=== PATIENT | male | born 1985 | race Caucasian/White ===

== ENCOUNTER 2018-02-14 09:20 | Emergency (ER) | payer BC, SELFPAY ==
--- NOTE | 2018-02-14 10:44 | EDPHYS ---
Physician Documentation [facility] Name: Tre Krueger Age: 32 yrs Sex: Male : 1985 Arrival Date: 02/14/2018 Time: 09:25 Bed 10 Private MD: ED Physician Mark Umaña HPI: 02/14 09:47 This 32 yrs old Male presents to ER via Wheelchair with complaints of Ankle jr8 Injury. 09:47 The patient presents with pain, swelling, tenderness. The complaints affect the left jr8 ankle. Onset: The symptoms/episode began/occurred acutely, last night. Context: The problem was sustained bar, resulted from a mis-step by the patient. Associated signs and symptoms: The patient has no apparent associated signs or symptoms. Modifying factors: The symptoms are alleviated by nothing, the symptoms are aggravated by weight bearing, movement. Severity of symptoms: At their worst the symptoms were mild, in the emergency department the symptoms are unchanged. The patient has not experienced similar symptoms in the past. The patient has not recently seen a physician. inverted ankle while dancing last night. Historical: - Allergies: 09:37 No Known Allergies; aa5 - PMHx: 09:37 None; aa5 - PSHx: 09:37 None; aa5 - Immunization history:: Adult Immunizations up to date. - Social history:: Smoking status: Patient/guardian denies using tobacco. - Ebola Screening: : No symptoms or risks identified at this time. ROS: 09:47 Constitutional: Negative for fever, chills, and weight loss. jr8 09:47 MS/extremity: Positive for decreased range of motion, pain, swelling, tenderness, of the left ankle. 09:47 All other systems are negative. Exam: 09:47 Neck: Trachea midline, no thyromegaly or masses palpated, and no cervical jr8 lymphadenopathy. Supple, full range of motion without nuchal rigidity, or vertebral point tenderness. No Meningismus. Cardiovascular: Regular rate and rhythm with a normal S1 and S2. No gallops, murmurs, or rubs. Normal PMI, no JVD. No pulse deficits. Respiratory: Lungs have equal breath sounds bilaterally, clear to auscultation and percussion. No rales, rhonchi or wheezes noted. No increased work of breathing, no retractions or nasal flaring. Back: No spinal tenderness. No costovertebral tenderness. Full range of motion. Skin: Warm, dry with normal turgor. Normal color with no rashes, no lesions, and no evidence of cellulitis. Neuro: Awake and alert, GCS 15, oriented to person, place, time, and situation. Cranial nerves II-XII grossly intact. Motor strength 5/5 in all extremities. Sensory grossly intact. Cerebellar exam normal. Normal gait. 09:47 Musculoskeletal/extremity: Extremities: grossly normal except: noted in the left ankle: Swelling to lateral malleolus. Tenderness with ROM and upon direct palpation to lateral ankle. No obvious deformity. Full ROM but with pain both passive and active , Circulation is intact in all extremities. Pulses: noted to be 2+ in the right radial artery, right dorsalis pedis artery, left radial artery and left dorsalis pedis artery, Sensation intact. Vital Signs: 09:37 BP 130 / 93; Pulse 94; Resp 18 S; Temp 97.7(TE); Pulse Ox 98% on R/A; Weight 102.06 kg aa5 (R); Height 6 ft. 0 in. (182.88 cm) (R); Pain 3/10; 09:37 Body Mass Index 30.52 (102.06 kg, 182.88 cm) aa5 Procedures: 10:41 Splinting: Splint applied to left ankle using Ortho 3D boot, applied by nurse. Examined jr8 by me, post splint application: neurovascular intact, 2+ distal pulses palpable, brisk capillary refill noted, Patient tolerated well. Crutch training provided to patient and/or family. Return demonstration given. MDM: 09:44 Patient medically screened. jr8 10:42 Data reviewed: vital signs, nurses notes, radiologic studies, plain films. Data jr8 interpreted: Pulse oximetry: on room air is 98 %. Interpretation: normal. Counseling: I had a detailed discussion with the patient and/or guardian regarding: the historical points, exam findings, and any diagnostic results supporting the discharge/admit diagnosis, radiology results, the need for outpatient follow up, a orthopedic surgeon, to return to the emergency department if symptoms worsen or persist or if there are any questions or concerns that arise at home. 10:43 ED course: Patient requested boot for job. jr8 02/14 09:47 Order name: XRAY Ankle LEFT 3 view jr8 02/14 10:42 Order name: Splint; Complete Time: 11:53 jr8 02/14 11:24 Order name: Ortho shoe; Complete Time: 11:39 5 02/14 11:24 Order name: Crutch Training; Complete Time: 11:39 5 02/14 11:24 Order name: Crutches; Complete Time: 11:39 5 Administered Medications: No medications were administered Disposition: 17:52 Co-signature as Attending Physician, Mark Umaña MD. Disposition: 02/14/18 10:43 Discharged to Home. Impression: Sprain of ankle. - Condition is Stable. - Discharge Instructions: Ankle Sprain. - Prescriptions for Ibuprofen 800 mg Oral Tablet - take 1 tablet by ORAL route every 12 hours As needed take with food; 20 tablet. - Medication Reconciliation Form, Thank You Letter, Antibiotic Education, Prescription Opioid Use form. - Follow up: Eduardo Graham MD; When: 7 - 10 days; Reason: Recheck today's complaints, Continuance of care, Re-evaluation by your physician. - Problem is new. - Symptoms have improved. Signatures: Dispatcher [employer] EDMS Nadia Matson RN RN aa5 Rodolfo Carvalho PA PA 8 Kenyetta Suarez [facility] Mark Umaña MD MD Corrections: (The following items were deleted from the chart) 11:46 10:43 02/14/2018 10:43 Discharged to Home. Impression: Sprain of ankle. Condition is mh5 Stable. Forms are Medication Reconciliation Form, Thank You Letter, Antibiotic Education, Prescription Opioid Use. Follow up: Eduardo Graham; When: 7 - 10 days; Reason: Recheck today's complaints, Continuance of care, Re-evaluation by your physician. Problem is new. Symptoms have improved. jr8
--- NOTE | 2018-02-14 10:44 | ER ---
Nurse's Notes [facility] Name: Tre Krueger Age: 32 yrs Sex: Male : 1985 Arrival Date: 02/14/2018 Time: 09:25 Bed 10 Private MD: Diagnosis: Sprain of ankle Presentation: 02/14 09:36 Presenting complaint: Patient states: "I was dancing last night and I rolled my ankle". aa5 Pt c/o pain to left ankle. Transition of care: patient was not received from another setting of care. Onset of symptoms was January 2018. Risk Assessment: Do you want to hurt yourself or someone else? Patient reports no desire to harm self or others. Initial Sepsis Screen: Does the patient meet any 2 criteria? No. Patient's initial sepsis screen is negative. Does the patient have a suspected source of infection? No. Patient's initial sepsis screen is negative. Care prior to arrival: None. 09:36 Method Of Arrival: Wheelchair aa5 09:36 Acuity: TRACIE 4 aa5 Historical: - Allergies: 09:37 No Known Allergies; aa5 - PMHx: 09:37 None; aa5 - PSHx: 09:37 None; aa5 - Immunization history:: Adult Immunizations up to date. - Social history:: Smoking status: Patient/guardian denies using tobacco. - Ebola Screening: : No symptoms or risks identified at this time. Screenin:38 Abuse screen: Denies threats or abuse. Nutritional screening: No deficits noted. aa5 Tuberculosis screening: No symptoms or risk factors identified. Fall Risk None identified. Assessment: 09:40 General: Appears comfortable, Behavior is calm, cooperative. Pain: Complains of pain in aa5 left ankle Pain does not radiate. Pain currently is 3 out of 10 on a pain scale. at worst was 10 out of 10 on a pain scale. Quality of pain is described as sharp, tender, Pain began this morning Is continuous, Aggravated by weight bearing. Neuro: Level of Consciousness is awake, alert, obeys commands, Oriented to person, place, time, situation. Cardiovascular: No deficits noted. Respiratory: Airway is patent Respiratory effort is even, unlabored, Respiratory pattern is regular, symmetrical. GI: No signs and/or symptoms were reported involving the gastrointestinal system. : No signs and/or symptoms were reported regarding the genitourinary system. EENT: No signs and/or symptoms were reported regarding the EENT system. Derm: Skin is pink, warm \\T\\ dry. Musculoskeletal: Range of motion: intact in all extremities, Swelling present in left ankle. 11:35 Reassessment: Air splint walking boot placed to left ankle . aa5 11:35 Reassessment: Patient is alert, oriented x 3, equal unlabored respirations, skin aa5 warm/dry/pink. Vital Signs: 09:37 BP 130 / 93; Pulse 94; Resp 18 S; Temp 97.7(TE); Pulse Ox 98% on R/A; Weight 102.06 kg aa5 (R); Height 6 ft. 0 in. (182.88 cm) (R); Pain 3/10; 09:37 Body Mass Index 30.52 (102.06 kg, 182.88 cm) aa5 ED Course: 09:25 Patient arrived in ED. mr 09:37 Triage completed. aa5 09:37 Arm band placed on. aa5 09:37 Patient has correct armband on for positive identification. Bed in low position. Call aa5 light in reach. Side rails up X 1. 09:38 Nadia Matson, KARL is Primary Nurse. aa5 09:43 Rodolfo Carvalho PA is PHCP. jr8 09:43 Mark Umaña MD is Attending Physician. jr8 10:09 X-ray completed. Portable x-ray completed in exam room. jr1 10:13 XRAY Ankle LEFT 3 view In Process Unspecified. EDMS 10:42 Eduardo Graham MD is Referral Physician. jr8 11:24 Crutch training done. Ortho shoe applied to left foot. ortho boot. mh5 11:45 Patient did not have IV access during this emergency room visit. aa5 11:45 No provider procedures requiring assistance completed. aa5 Administered Medications: No medications were administered Outcome: 10:43 Discharge ordered by . jr8 11:45 Discharged to home via wheelchair, with crutches, with significant other. aa5 11:45 Condition: stable 11:45 Discharge instructions given to patient, Instructed on discharge instructions, follow up and referral plans. medication usage, Demonstrated understanding of instructions, follow-up care, medications, Prescriptions given X 1. 11:46 Patient left the ED. 5 Signatures: Dispatcher [employer] MANUEL KashmirRebeca mr Virgie Hickey jr1 Nadia Matson RN RN aa5 Rodolfo Carvalho PA PA jr8 Kenyetta Suarez [facility]
--- NOTE | 2018-02-14 12:39 | RAD REPORT ---
EXAM DESCRIPTION: RAD - Ankle Left 3 View - 02/14/2018 10:13 am CLINICAL HISTORY: Ankle pain, twisting injury COMPARISON: None. FINDINGS: No fracture, dislocation or periosteal reaction. No joint effusion seen. No joint space na rrowing. No soft tissue abnormality. Lateral soft tissue swelling is present. IMPRESSION: Soft tissue swelling with no left ankle fracture.
== END 2018-02-14 11:46 | disposition home or self-care (01) ==
LOC: ER 09:20
DX: S93.402A Sprain of unspecified ligament of left ankle, initial encounter (principal); Y93.41 Activity, dancing; Y92.9 Unspecified place or not applicable
CPT/HCPCS: 99283

== ENCOUNTER 2022-09-19 19:24 | Day surgery (SDC) | payer BC, SELFPAY ==
--- OUTSIDE RECORDS SUMMARY | 2022-09-19 19:27 | XMS REPORT | Continuity of Care Document ---
:1985 Author Organization [facility] t Address [address] [facility] [address] [place] [address] Care Team Providers Name Role Phone Unavailable Unavailable Unavailable Problems This patient has no known problems. Allergies, Adverse Reactions, Alerts This patient has no known allergies or adverse reactions. Medications This patient has no known medications. Procedures This patient has no known procedures. Encounters Start End Encounter Admission Attending Care Care Encounter Source Date/Time Date/Time Type Type Clinicians Facility Department ID 2022-01-16 Outpatient [facility] [id number] Common 08:18:01 [facility] 2021-08-20 Outpatient [facility] [id number] Common 09:17:02 [facility] Results This patient has no known results.
[2022-09-19] MEDS ORDERED: HYDROMORPHONE HCL 1 MG/ML INJ ONE ×2 (20:45→22:34)
[2022-09-19] MEDS ORDERED: NA CHLORIDE 0.9% 1,000 ML ONE (20:45)
[2022-09-19] MEDS ORDERED: ONDANSETRON 4 MG/2 ML VIAL ONE ×2 (20:45→22:57)
[2022-09-19 20:46] LABS: Absolute Lymphocytes (CBC) 1.6 K/uL (0.7-4.9); Hematocrit 45.2 % (39.6-49.0); Lymphocytes % 11.5 % (15.3-44.8); MCV 86.9 fL (80-100); MPV 7.7 fL (7.6-11.3); RBC Red Blood Cell Count 5.21 M/uL (4.33-5.43)
[2022-09-19 21:06] LABS: Albumin 3.8 g/dL (3.4-5.0); Bilirubin Total 0.5 mg/dL (0.2-1.0); Protein, Total 7.8 g/dL (6.4-8.2)
--- NOTE | 2022-09-19 21:54 | RAD REPORT ---
EXAM DESCRIPTION: CT - Stone Protocol - 09/19/2022 9:39 pm CLINICAL HISTORY: FLANK PAIN COMPARISON: CTSTONE PROTOCOL dated 07/30/2013; CTSTONE PROTOCOL dated 01/13/2013; CT-STONE PROTOCOL da lori 12/05/2010 TECHNIQUE: Thin cut axial CT imaging of the abdomen and pelvis was performed without IV contrast. Mu ltiplanar reformats were generated and reviewed. All CT scans are performed using dose optimization technique as appropriate and may include automated exposure control or mA/KV adjustment according to patient size. FINDINGS: No suspicious findings in the lung bases. The liver, spleen, and pancreas show no suspicious findings. Gallbladder and biliary tree are also wi thout suspicious finding. Symmetric renal contour, without suspicious parenchymal findings within limits of noncontrast techniq ue. Right pelviureteric junction 1.5 centimeter calculus. Mild right hydronephrosis. No dilated bowel loops or bowel wall thickening. No free air, free fluid or inflammatory stranding. N o hernia, mass or bulky lymphadenopathy. The urinary bladder is without significant finding. No suspicious bony findings. IMPRESSION: Mild right hydronephrosis, related to a right pelviureteric junction 1.5 centimeter calc ulus. The findings were communicated to Milad Page on 09/19/2022 at 21:50 hours.
--- NOTE | 2022-09-19 22:27 | EDPHYS ---
Physician Documentation [facility] Name: Tre Krueger Age: 37 yrs Sex: Male : 1985 Arrival Date: 09/19/2022 Time: 19:24 Bed 4 Private MD: ED Physician Juan Alegria HPI: 09/19 20:15 This 37 yrs old Male presents to ER via Ambulatory with complaints of Possible Kidney cp Stone, Low Back Pain, Abdominal Pain. 20:15 The patient complains of pain in the right flank. The pain does not radiate. Onset: The cp symptoms/episode began/occurred intermittent for the past month, constant since this morning at about 0700. 20:15 Associated signs and symptoms: Pertinent positives: nausea, Pertinent negatives: cp diarrhea, dizziness, fever, headache, pain radiating to the lower extremities, vomiting. Severity of pain: in the emergency department the pain is unchanged despite home interventions. The patient has experienced similar episodes in the past, multiple times, today's symptoms are similar, to when the patient was apparently diagnosed with kidney stones. Historical: - Allergies: 20:05 No Known Allergies; iw - Home Meds: 20:05 None [Active]; iw - PMHx: 20:05 None; iw - PSHx: 20:05 None; iw - Immunization history:: Adult Immunizations up to date, Client reports receiving the 2nd dose of the Covid vaccine. - Social history:: Smoking status: Patient denies any tobacco usage or history of. Patient uses alcohol, only on a social basis. ROS: 20:20 Constitutional: Negative for body aches, chills, fever, poor PO intake. cp 20:20 Eyes: Negative for injury, pain, redness, and discharge. cp 20:20 ENT: Negative for drainage from ear(s), ear pain, sore throat, difficulty swallowing, difficulty handling secretions. 20:20 Cardiovascular: Negative for chest pain, edema, palpitations. 20:20 Respiratory: Negative for cough, shortness of breath, wheezing. 20:20 Abdomen/GI: Positive for nausea, Negative for abdominal pain, vomiting, diarrhea, constipation. 20:20 Back: Positive for flank pain, on the right. 20:20 : Negative for difficulty urinating, bladder incontinence, testicular pain 20:20 Skin: Negative for rash. 20:20 Neuro: Negative for altered mental status, dizziness, headache, numbness, weakness. 20:20 All other systems are negative. Exam: 20:25 Constitutional: The patient appears in no acute distress, alert, awake, non-toxic, well cp developed, well nourished, uncomfortable. 20:25 Head/Face: Normocephalic, atraumatic. cp 20:25 Eyes: Periorbital structures: appear normal, Conjunctiva: normal, no exudate, no injection, Sclera: no appreciated abnormality, Lids and lashes: appear normal, bilaterally. 20:25 ENT: External ear(s): are unremarkable, Nose: is normal, Mouth: Lips: moist, Oral mucosa: pink and intact, moist, Posterior pharynx: is normal, airway is patent, no erythema, no exudate. 20:25 Neck: ROM/movement: is normal, is supple, without pain, no range of motions limitations. 20:25 Chest/axilla: Inspection: normal. 20:25 Cardiovascular: Rate: normal, Rhythm: regular, Edema: is not appreciated, JVD: is not appreciated. 20:25 Respiratory: the patient does not display signs of respiratory distress, Respirations: normal, no use of accessory muscles, no retractions, labored breathing, is not present, Breath sounds: are clear throughout, no decreased breath sounds, no stridor, no wheezing. 20:25 Abdomen/GI: Inspection: abdomen appears normal, Bowel sounds: active, all quadrants, Palpation: abdomen is soft and non-tender, in all quadrants. 20:25 Back: pain, that is moderate, of the right mid back, ROM is painful, with all movement. 20:25 Skin: cellulitis, is not appreciated, no rash present. 20:25 Neuro: Orientation: to person, place \T\ time. Mentation: is normal, Motor: moves all fours, strength is normal, Sensation: is normal, Gait: is steady, at a normal pace, without difficulty. Vital Signs: 20:02 BP 147 / 106; Pulse 63; Resp 19 S; Temp 98.6(O); Pulse Ox 100% on R/A; Weight 106.59 kg iw (R); Height 6 ft. 0 in. (R); Pain 10/10; 21:10 BP 158 / 113; Pulse 59; Resp 16; Pulse Ox 96% on R/A; jb4 22:12 BP 148 / 99; Pulse 63; Resp 16; Pulse Ox 99% on R/A; jb4 20:02 Body Mass Index 31.87 (106.59 kg, 182.88 cm) iw 20:02 Pain Scale: Adult iw MDM: 20:07 Patient medically screened. cp 20:45 Differential diagnosis: nephrolithiasis, pyelonephritis, UTI, diverticulitis, ruptured cp AAA, dissecting AAA. 22:05 Data reviewed: vital signs, nurses notes, lab test result(s), radiologic studies, CT cp scan. Management of patient was discussed with the following: Paper Sealer: DR Winn \[id number] concerning 1.5 cm stone right ureter with acute kidney injury and mild hydronephrosis. 22:15 ED course: will admit to same day surgery for right ureter stent placement and patient cp to be discharged home after procedure with RX for blood draw to check kidney function next week. 09/19 20:14 Order name: CBC with Diff; Complete Time: 21:23 09/19 21:23 Interpretation: Normal except: WBC 13.80; RDW 12.0; DONNA% 79.4; LYM% 11.5; NEUT A 10.9. 09/19 20:14 Order name: CMP; Complete Time: 21:23 09/19 21:23 Interpretation: Normal except: NA 133; CRE 1.73; GFR 52; GLOB 4.0; A/G 1.0. 09/19 20:14 Order name: Lipase; Complete Time: 21:23 09/19 20:14 Order name: Urinalysis w/ reflexes 09/19 20:49 Order name: CT Stone Protocol; Complete Time: 21:57 09/19 21:57 Interpretation: Report reviewed. 09/19 20:14 Order name: IV Saline Lock; Complete Time: 20:47 09/19 20:14 Order name: Labs collected and sent; Complete Time: 20:47 cp Administered Medications: 20:47 Drug: NS 0.9% IV 1000 ml Route: IV; Rate: 1 bolus; Site: right antecubital; jb4 20:47 Drug: HYDROmorphone IVP 1 mg Route: IVP; Site: right antecubital; jb4 20:47 Drug: Ondansetron IVP 4 mg Route: IVP; Site: right antecubital; jb4 22:29 Drug: HYDROmorphone IVP 1 mg Route: IVP; Site: right antecubital; rv Disposition Summary: 09/19/22 22:26 Hospitalization Ordered Hospitalization Status: Observation cp Provider: Raghu Winn cp Location: Operating Room cp Condition: Stable cp Problem: new cp Symptoms: have improved cp Bed/Room Type: Standard cp Room Assignment: cp Diagnosis - Unspecified injury of right kidney, initial encounter cp - Hydronephrosis with renal and ureteral calculous obstruction cp Forms: - Medication Reconciliation Form cp - SBAR form cp Signatures: Dispatcher [employer] EDAniyah Andres RN RN Milad Davis PA PA cp Bryson, James, RN RN jb4 Don Nieves RN RN rv
--- NOTE | 2022-09-19 22:27 | ER ---
Nurse's Notes [facility] Name: Tre Krueger Age: 37 yrs Sex: Male : 1985 Arrival Date: 09/19/2022 Time: 19:24 Bed 4 Private MD: Diagnosis: Unspecified injury of right kidney, initial encounter;Hydronephrosis with renal and ureteral calculous obstruction Presentation: 09/19 20:02 Chief complaint: Patient states: i think i have another kidney stone. pain comes and iw goes for the last month but today it has been consistent pain on the right side since 0700 this morning. complains of nausea. Coronavirus screen: Client denies travel out of the [place] in the last 14 days. At this time, the client does not indicate any symptoms associated with coronavirus-19. Ebola Screen: No symptoms or risks identified at this time. Initial Sepsis Screen: Does the patient meet any 2 criteria? No. Patient's initial sepsis screen is negative. Does the patient have a suspected source of infection? No. Patient's initial sepsis screen is negative. Risk Assessment: Do you want to hurt yourself or someone else? Patient reports no desire to harm self or others. Onset of symptoms was September 19, 2022. 20:02 Method Of Arrival: Ambulatory iw 20:02 Acuity: TRACIE 3 iw Triage Assessment: 20:05 General: Appears in no apparent distress. uncomfortable, Behavior is calm, cooperative. iw Pain: Complains of pain in right flank. EENT: No deficits noted. No signs and/or symptoms were reported regarding the EENT system. Neuro: No deficits noted. [place] Agitation-Sedation Scale (RASS): 0 - Alert and Calm Level of Consciousness is awake, alert, obeys commands, Oriented to person, place, time, situation. Cardiovascular: No deficits noted. Denies chest pain, shortness of breath. Respiratory: No deficits noted. Airway is patent Respiratory effort is even, unlabored, Respiratory pattern is regular, symmetrical. GI: Abdomen is round non-distended. : No deficits noted. Reports inability to void, pain urgency, urinary frequency. Derm: No deficits noted. No signs and/or symptoms reported regarding the dermatologic system. Skin is intact, is healthy with good turgor, Skin is dry, Skin is normal, Skin temperature is warm. Musculoskeletal: No deficits noted. No signs and/or symptoms reported regarding the musculoskeletal system. Circulation, motion, and sensation intact. Range of motion: intact in all extremities. Historical: - Allergies: 20:05 No Known Allergies; iw - Home Meds: 20:05 None [Active]; iw - PMHx: 20:05 None; iw - PSHx: 20:05 None; iw - Immunization history:: Adult Immunizations up to date, Client reports receiving the 2nd dose of the Covid vaccine. - Social history:: Smoking status: Patient denies any tobacco usage or history of. Patient uses alcohol, only on a social basis. Screenin:12 [facility] ED Fall Risk Assessment (Adult) History of falling in the last 3 months, jb4 including since admission No falls in past 3 months (0 pts) Confusion or Disorientation No (0 pts) Score/Fall Risk Level 0 - 2 = Low Risk Oriented to surroundings, Maintained a safe environment. Abuse screen: Denies threats or abuse. Nutritional screening: No deficits noted. Tuberculosis screening: No symptoms or risk factors identified. Assessment: 21:10 Reassessment: Patient appears in no apparent distress at this time. Patient and/or jb4 family updated on plan of care and expected duration. Pain level reassessed. Patient is alert, oriented x 3, equal unlabored respirations, skin warm/dry/pink. 21:35 Reassessment: Pt to CT. jb4 22:10 Reassessment: Patient appears in no apparent distress at this time. Patient and/or jb4 family updated on plan of care and expected duration. Pain level reassessed. Patient is alert, oriented x 3, equal unlabored respirations, skin warm/dry/pink. Pt instructed to remain NPO. Vital Signs: 20:02 BP 147 / 106; Pulse 63; Resp 19 S; Temp 98.6(O); Pulse Ox 100% on R/A; Weight 106.59 kg iw (R); Height 6 ft. 0 in. (R); Pain 10/10; 21:10 BP 158 / 113; Pulse 59; Resp 16; Pulse Ox 96% on R/A; jb4 22:12 BP 148 / 99; Pulse 63; Resp 16; Pulse Ox 99% on R/A; jb4 20:02 Body Mass Index 31.87 (106.59 kg, 182.88 cm) iw 20:02 Pain Scale: Adult iw ED Course: 19:29 Patient arrived in ED. jj6 19:34 Milad Boyd PA is PHCP. cp 19:34 Juan Alegria DO is Attending Physician. cp 20:05 Triage completed. iw 20:05 Arm band placed on right wrist. iw 20:46 Delmar Reilly, RN is Primary Nurse. jb4 20:47 CBC with Diff Sent. rv 20:47 CMP Sent. rv 20:47 Lipase Sent. rv 20:47 Inserted saline lock: 20 gauge in right antecubital area, using aseptic technique. rv Blood collected. 21:40 CT Stone Protocol In Process Unspecified. EDMS 22:24 Raghu Winn MD is Hospitalizing Provider. cp Administered Medications: 20:47 Drug: NS 0.9% IV 1000 ml Route: IV; Rate: 1 bolus; Site: right antecubital; jb4 20:47 Drug: HYDROmorphone IVP 1 mg Route: IVP; Site: right antecubital; jb4 20:47 Drug: Ondansetron IVP 4 mg Route: IVP; Site: right antecubital; jb4 22:29 Drug: HYDROmorphone IVP 1 mg Route: IVP; Site: right antecubital; rv Outcome: 22:26 Decision to Hospitalize by Provider. cp 22:56 Patient left the ED. vc1 Signatures: Dispatcher [employer] EDMS Aniyah Yao, RN KARL Milad Boyd PA PA cp Delmar Reilly, KARL BARAJAS jb4 Don Nieves RN RN Virgie Hurtado jj6 Amberly Rice RN RN vc1
[2022-09-19] MEDS ORDERED: propofoL 200 MG/20 ML VIAL IV ONE (22:56)
[2022-09-19] MEDS ORDERED: MIDAZOLAM HCL 2 MG/2 ML INJ ONE (22:56)
[2022-09-19] MEDS ORDERED: LIDOCAINE 1% MPF 5 ML VIAL ONE (22:56)
[2022-09-19] MEDS ORDERED: FENTANYL CITR 100 MCG/2 ML ONE (22:56)
[2022-09-19] MEDS ORDERED: Ringers Lactate 1,000 ML IV ONE (23:04)
[2022-09-19] MEDS ORDERED: SUCCINYLCHOLINE 20 MG/ML (10 ML) IV ONE (23:30)
[2022-09-19] MEDS ORDERED: CEFAZOLIN SODIUM 2 GM/VIAL ONE (23:52)
--- NOTE | 2022-09-19 23:57 | P.CNS ---
Date of Consult: 09/19/22 37-year-old gentleman recurrent stone former, former patient of jade Kat vasectomy several years ago presents with severe right flank pain that began early this morning. The pain was severe and colicky in nature and radiated into the upper right upper quadrant. He denied any associated fever or chills, and he had no significant nausea or vomiting. He denies any dysuria or gross hematuria. He claims to have had multiple kidney stones in the past that he has successfully passed without requiring surgical intervention. Those of all been much smaller. Past medical history: Kidney stones as above Past surgical history: Vasectomy as above No known drug allergies Examination: Well-appearing and in no acute distress No dyspnea or sign of respiratory distress Alert, awake, oriented x3 Abdomen soft, nontender 09/19/2022 creatinine 1.73, white blood count 13.8, hemoglobin 15.3, platelets 223 CT abdomen and pelvis stone protocol: I reviewed the images directly, and there was indeed a large 15 mm calculus at the right UPJ with mild hydronephrosis and a perinephric stranding. No additional renal calculi were noted bilaterally. Left renal unit normal appearing. The report of the CT was not visible due to issues with the hospital medical record pulling up documents at the time of this documentation. Assessment and recommendation: 37-year-old gentleman recurrent stone former, former patient of Dr. Ivan hansen mastectomy with right flank pain associated with a 15 mm right UPJ calculus and JAIMIE. -I counseled the patient that given the acute kidney injury observed, decompression was recommended. The ureteral stent was being offered to internalize the decompression and avoid the need for externalization, but I explained that there was a 5% chance of impaction of the stone that could make placement of a stent and possible. In that case, a right percutaneous nephrostomy tube would be required. -The purpose of the stent and the risk of stent discomfort was discussed in detail. -I explained the need for follow-up evaluation and planning for definitive surgical management along with discussion of the options for management to occur as an outpatient. -He was given an order for a serum BMP to be performed early next week, which will be followed up by Milad TANG in the emergency department as I will be out of the country on vacation and unable to follow-up the resolution of his JAIMIE. -Risks of the cystoscopy and stent procedure were discussed in detail to include the risk of ureteral injury, urethral stricture, infection, and bleeding. -Consent was obtained for cystoscopy with right retrograde pyelography and right ureteral stent placement to be done urgently this evening. -Follow-up with me in the urology clinic upon my return. 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
--- NOTE | 2022-09-20 00:25 | P.OP ---
Preoperative diagnosis: Right ureterolithiasis, acute kidney injury, right flank pain Postoperative diagnosis: Same Primary procedure: Cystoscopy with right ureteral stent placement Secondary procedure: Right retrograde pyelography Anesthesia: LMA general Estimated blood loss: Negligible Specimen: None Findings: Radiopaque UPJ calculus on the right Operative Technique: Indication for procedure: Mr. Krueger is a 37-year-old gentleman who is a recurrent stone former, former patient of Dr. Love, who presents for the first time with a large, 15 mm, right UPJ calculus that he is unable to pass and was associated with right flank pain and acute kidney injury. He was counseled on the incredibly low likelihood of successful spontaneous passage and the need for decompression to relieve the obstruction causing his renal dysfunction. As a result, a right ureteral stent was recommended with the possibility of him needing a right percutaneous nephrostomy tube. Procedure note: The patient was consented in the preoperative holding area before being transferred to the operative suite where general anesthesia was induced. He was given Ancef 2 g IV antimicrobial prophylaxis, and pneumoboots were provided for DVT prophylaxis. He was given Ancef 2 g IV antimicrobial prophylaxis. He was placed in the lithotomy position, padded and secured to the table appropriately, and his genitalia was prepped with Hibiclens before being draped in standard fashion. A 22 [place] rigid cystoscope was used to traverse his urethra and into his bladder with ease. The bladder was decompressed of fluid in urine, and there were no obvious papillary mucosal lesions, foreign bodies or stones. The ureteral orifice ease were orthotopic in location, and the right ureteral orifice was cannulated using the tip of a 5 [place] ureteral access catheter. A retrograde pyelogram was then performed. Right retrograde pyelography: Using a 70: 30 mixture of Omnipaque and saline, contrast was injected via the lumen of the 5 [place] ureteral access catheter and did propagate up to a nondilated distal into the mid and proximal ureter before a slight degree of contrast was observed in the lower and mid pole calyces. Because of the risk of occult infection, though the patient was afebrile, I did not want to inject more contrast to fully delineate each of the calyces. The stone was visible as a radiopaque density at the UPJ. As a result, I passed a sensor wire via the 5 [place] ureteral access catheter up the distal into the mid and proximal ureter and it did pass beyond the obstructing calculus and into the putative upper pole of the kidney where a coil was observed fluoroscopically. Over the wire, I passed a 6 [place] by 26 cm double-J ureteral stent which did reach into the upper pole infundibulum, and the coil of the stent proximally ultimately coiled around the stone in the renal pelvis potentially at the UPJ. The distal coil of the stent was just formed within the bladder. There was rapid decompression of some slightly bloody and slightly opaque urine from within the kidney consistent with likely mild papillary necrosis. As a result, I decompressed his bladder of fluid in urine, and I took him out of the lithotomy position. He was then awakened from general anesthesia, transferred to a stretcher, and then transferred to the recovery room in good condition. Complications: None Drain(s): Other (6 x 26 [place] right ureteral stent) Transferred to: Recovery Room Condition: Good
[2022-09-20] MEDS ORDERED: CODEINE 30MG/APAP 300MG TAB PO PRN (00:34)
[2022-09-20] MEDS ORDERED: PHENAZOPYRIDINE 100MG TAB PO ONE (00:34)
[2022-09-20 01:08] VITALS: BP 136/70; TEMP 97; O2SAT 94
--- NOTE | 2022-09-20 07:44 | RAD REPORT ---
EXAM DESCRIPTION: RAD - Cystography - 09/20/2022 12:30 am CLINICAL HISTORY: ICD N 20.0 FINDINGS: Ten fluoroscopic spot images obtained. Fluoroscopy time 0.15 minutes Right ureter was cannulated and contrast administered. Subsequently an ureteral stent was placed. Exa mination was performed by Dr Winn
== END 2022-09-20 ==
LOC: ER 19:24 → DS 23:12 → ER 09-20 00:34 → PACU 09-20 00:35
PROVIDERS: ATTEND Urology
PROC: 0T768DZ Dilation of Right Ureter with Intraluminal Device, Via Natural or Artificial Opening Endoscopic (ICD-10-PCS; principal; 2022-09-20)
DX: N20.1 Calculus of ureter (principal); N17.9 Acute kidney failure, unspecified; R10.9 Unspecified abdominal pain
CPT/HCPCS: 85025; 36415; 83690; 80053; 76377; 74176; 51600; 74430; 96375; 96374; 99284; 52332; J2704; J2001; J2250; J3010; J1170 ×2; J2405 ×2; J7120; J7030

== ENCOUNTER → 2022-10-29 | Day surgery (SDC) | payer BC ==
[2022-10-15 15:43] LABS: Absolute Lymphocytes (CBC) 2.4 K/uL (0.7-4.9); Hematocrit 46.6 % (39.6-49.0); Lymphocytes % 26.4 % (15.3-44.8); MCV 87.7 fL (80-100); MPV 7.6 fL (7.6-11.3); RBC Red Blood Cell Count 5.31 M/uL (4.33-5.43)
[2022-10-15 15:44] LABS: Protime INR 0.91
[2022-10-15 15:47] LABS: Potassium 4.2 mEq/L (3.5-5.1)
--- NOTE | 2022-10-15 17:49 | RAD REPORT ---
EXAM DESCRIPTION: Sonnyt Pa And Lat (2 Views)10/15/2022 3:44 pm CLINICAL HISTORY: pre op for surgery. Hypertension COMPARISON: ABDOMEN 1 VIEW KUB dated 01/13/2013 TECHNIQUE: PA and lateral views of the chest. FINDINGS: The lungs are clear. No pneumothorax or effusion. The cardiomediastinal contours are unre markable. IMPRESSION: No acute cardiopulmonary process.
--- NOTE | 2022-10-16 18:10 | EKG ---
Test Date: 2022-10-15 Test Time: 15:22:22 Legend Maker: MARYSE MEASUREMENT RESULTS: Intervals: Rate: 56 TN: 150 QRSD: 94 QT: 368 QTc: 355 [place]: P: 11 TN: 150 QRS: 28 T: -7 INTERPRETIVE STATEMENTS: Sinus bradycardia with sinus arrhythmia Inferior infarct, age undetermined Abnormal ECG Compared to ECG 06/13/2015 10:23:56 Myocardial infarct finding now present T-wave abnormality no longer present Electronically Signed On 10-16-22 18:08:54 CDT by Eitan Anthony
[~2022-10-29] MED LIST: CEFAZOLIN SODIUM 2 GM/VIAL ONE; CODEINE 30MG/APAP 300MG TAB PO PRN; FENTANYL CITR 100 MCG/2 ML ONE; LIDOCAINE 2% MPF 5 ML VIAL ONE; MIDAZOLAM HCL 2 MG/2 ML INJ ONE; ONDANSETRON 4 MG/2 ML VIAL ONE; Ringers Lactate 1,000 ML IV ONE; dexAMETHasone 4 MG/ML VIAL ONE; propofoL 200 MG/20 ML VIAL IV ONE
[2022-10-29 10:03] VITALS: BP 125/85; TEMP 97; O2SAT 98
--- NOTE | 2022-10-29 15:50 | OP ---
Surgeon: GARCIA NI Preoperative Diagnoses: 1.Right nephrolithiasis. 2.History of right obstructive ureterolithiasis. 3.Status post cystoscopy with right ureteral stent placement. Postoperative Diagnoses: 1.Right nephrolithiasis. 2.History of right obstructive ureterolithiasis. 3.Status post cystoscopy with right ureteral stent placement. Principal Procedure: Right extracorporeal shockwave lithotripsy/ESWL. Findings: A 13 mm radiopaque calculus in the renal pelvis around the right ureteral stent coil. Indication For Procedure: Mr. Krueger is a 37-year-old gentleman, recurrent stone former, who pres ented with a 13 to 15 mm right UPJ calculus and acute kidney injury, status post cystoscopy with righ t ureteral stent placement 09/20/2022. He was counseled on options for management of the stone and e lected to proceed with shockwave lithotripsy. He presents today for that management. Procedure In Detail: The patient was consented in the preoperative holding area before being transfe rred to the operative suite where general anesthesia was induced. He was given Ancef 2 g IV antimicr obial prophylaxis, and placed supine on the procedure table. A water bath was placed beneath his fla nk, and the case was begun using fluoroscopic imaging to target of the stone in the anterior-posterio r and dorsal ventral dimensions. Once adequately targeted, shockwave lithotripsy was begun at a chavez r of 3.5 and slowly increased to 4 over the course of about 200 shocks before a 2 minute pause was gi ash. Shockwave lithotripsy was then re-engaged, and the power was increased between 200 and 500 shoc ks to a power of 7. After 500 shocks at 1 hertz, the stone was noted to already begin to fragment; s o we increased the rate to 1.5 hertz. Shockwave lithotripsy was continued over the course of the nex t 500 shocks and repeat fluoroscopic imaging at 1000 shocks did show significant fragmentation of the stone. As a result, retargeting was performed centered over the predominance of the dust cloud, and an additional 1000 shocks was delivered until at 2000 shocks, no additional radiopaque calculi could be seen. At this point, shockwave lithotripsy was then concluded, the patient was awakened from gen eral anesthesia, transferred to a stretcher, and then transferred to the recovery room in good condit ion. Complications: None. Discharge Disposition: He should obtain a KUB in about 1 to 2 weeks' time and if confirmed successfu l fragmentation of the stone, we will plan to remove the right ureteral stent cystoscopically in the office in about 2 to 3 weeks. Subsequent followup required will be metabolic profile assessment give n his recurrent stone forming potential. EMILY/LALO Voice ID: [id number] Report ID: [id number]
== END | disposition home or self-care (01) ==
LOC: OR 06:37
PROVIDERS: ATTEND Urology
PROC: 0TF3XZZ Fragmentation in Right Kidney Pelvis, External Approach (ICD-10-PCS; principal; 2022-10-29 08:45)
DX: N20.0 Calculus of kidney (principal); I49.8 Other specified cardiac arrhythmias; R94.31 Abnormal electrocardiogram [ECG] [EKG]
CPT/HCPCS: 93005; 87088; 85025; 87086; 80048; 36415; 85610; 85730; 71046; 50590; J2704; J1100; J2001; J2250; J3010; J2405; J7120